=== PATIENT | male | born 1995 | race African-American/Black ===

== ENCOUNTER 2020-10-20 06:30 | Emergency (ER) | payer SELFPAY ==
[~2020-10-20] VITALS: Ht 180.3 cm; Wt 113.4 kg
[2020-10-20 06:53] VITALS: BP 149/95
[2020-10-20] MEDS ORDERED: HYDROcodone-ACET 10/325MG TAB PO ONE (08:00)
== END 2020-10-20 08:25 | disposition home or self-care (01) ==
LOC: ER 06:30
DX: S09.93XA Unspecified injury of face, initial encounter (principal); W01.0XXA Fall on same level from slipping, tripping and stumbling without subsequent striking against object, initial encounter; Y93.89 Activity, other specified; Y92.89 Other specified places as the place of occurrence of the external cause; Y99.8 Other external cause status
CPT/HCPCS: 70486